=== PATIENT | male | born 1970 | race African-American/Black ===

== ENCOUNTER 2022-11-28 07:32 | Outpatient (CLI) | payer BC, SELFPAY ==
--- NOTE | ~2022-11-28 | NM_ITS ---
EXAMINATION: NM bone scan whole body DATE: 11/28/2022 12:11 INDICATION: Prostate cancer TECHNIQUE: 24.3 mCi Tc-99m HDP was administered intravenously. Delayed whole-body scintigrams were o btained. COMPARISON: There are no prior imaging studies at our institution. FINDINGS: Likely degenerative joint centered uptake most prominent at the medial compartments of the bilateral knees and to lesser degree at the bilateral acromioclavicular joints and a few joints in the bilatera l feet and ankles. Foci of increased uptake at the right side of the upper cervical and lower lumbar spine location most typical for facet osteoarthritis. More midline uptake at the lower cervical spine typical for degenerative disc disease. There is a focus of increased uptake projecting over the post erior right likely 11th rib indeterminate for a bone lesion or more likely excreted activity in an up per pole calyx of the right kidney. There are couple small subtle foci of mild uptake at the posterio r right side of the calvarium. IMPRESSION: 1. A couple subtle foci of mild uptake at the right posterior calvarium and more intense focus of act ivity particularly of the right posterior 11th rib, the latter which could be artifact of superimpose d excreted renal activity. Suspicion for metastatic disease is low but would consider CT of the head and potentially of the lower ribs for further evaluation. Alternatively could also consider further e valuation with PSMA PET CT. Reviewed, dictated and finalized at location A. IMPRESSION: 1. A couple subtle foci of mild uptake at the right posterior calvarium and mor e intense focus of activity particularly of the right posterior 11th rib, the l atter which could be artifact of superimposed excreted renal activity. Suspicio n for metastatic disease is low but would consider CT of the head and potential ly of the lower ribs for further evaluation. Alternatively could also consider further evaluation with PSMA PET CT.
== END 2022-11-28 07:33 | disposition home or self-care (01) ==
PROVIDERS: Visit Provider Urology
DX: C61 Malignant neoplasm of prostate (principal)
CPT/HCPCS: 78306; A9503

== ENCOUNTER 2022-12-18 13:21 | Outpatient (CLI) | payer BC, SELFPAY ==
--- NOTE | ~2022-12-18 | PE_ITS ---
EXAMINATION: PET_PETPSMAST_PT DATE: 12/18/2022 15:27 INDICATION: Malignant neoplasm of prostate. TECHNIQUE: 9.299 mCi of piflufolastat F-18 was administered intravenously. Low dose computed tomograp hy (CT) images were acquired from the base of the brain to the proximal thighs for attenuation correc tion and anatomic localization. Automated exposure control was employed. Dose-length product (DLP) wa s 1001 mGy-cm. Positron emission tomography (PET) images were acquired in the same distribution. COMPARISON: Bone scan 11/28/2022 FINDINGS: Head/neck: There are no pathologically enlarged lymph nodes. Chest: There is no pneumonia or pleural effusion. The heart size is normal. No pericardial effusion. There are no pathologically enlarged lymph nodes. There is activity in normal-sized axillary, mediast inal, and hilar lymph nodes with maximum SUV of 3.9. Abdomen/pelvis/proximal thighs: The liver, gallbladder, spleen, pancreas, adrenal glands, and kidneys are normal. There is a supraumbilical ventral hernia containing fat. There is an umbilical hernia co ntaining fat. There are no dilated loops of bowel. The appendix is normal. There is increased activit y in the prostate, worst in the right peripheral zone with maximum SUV of 122. There are no pathologi milly enlarged lymph nodes. There is activity in normal-sized inguinal and external iliac lymph nodes with maximum SUV of 4.4. There is no free intraperitoneal fluid. There is no osseous metastatic dise ase. IMPRESSION: 1. Increased activity in the prostate, worst in the right peripheral zone, consistent with primary ma lignancy. 2. Mild activity in pelvic and chest lymph nodes, which is indeterminate for metastatic disease. Reviewed, dictated and finalized at location A. IMPRESSION: 1. Increased activity in the prostate, worst in the right peripheral zone, cons istent with primary malignancy. 2. Mild activity in pelvic and chest lymph nodes, which is indeterminate for me tastatic disease.
== END 2022-12-18 13:22 | disposition home or self-care (01) ==
LOC: ANHIMG 13:25
PROVIDERS: PCP Family Medicine; Visit Provider Urology
DX: C61 Malignant neoplasm of prostate (principal)
CPT/HCPCS: 78815; A9595

== ENCOUNTER 2023-01-30 10:54 | Outpatient (CLI) | payer BC, SELFPAY ==
--- NOTE | ~2023-01-30 | MR_ITS ---
EXAMINATION: MR pelvis wo/w con DATE: 01/30/2023 12:57 INDICATION: Malignant neoplasm of prostate. TECHNIQUE: Magnetic resonance imaging (MRI) of the pelvis was performed without and with 20 mL MultiH ance intravenous contrast. COMPARISON: PET CT 12/18/2022 FINDINGS: The prostate is normal in size. There are no pathologically enlarged lymph nodes. There is no free in traperitoneal fluid. IMPRESSION: 1. No evidence of metastatic disease. Reviewed, dictated and finalized at location E.
== END 2023-01-30 10:55 | disposition home or self-care (01) ==
PROVIDERS: PCP Family Medicine; Visit Provider Radiology Radiation Oncology
DX: C61 Malignant neoplasm of prostate (principal)
CPT/HCPCS: 72197; A9577